=== PATIENT | male | born 2005 | race Caucasian/White ===

== ENCOUNTER 2024-09-07 10:31 | Emergency (ER) | payer SELFPAY ==
[2024-09-07 10:34] VITALS: BP 119/77; PULSE 74; RESP 18; TEMP 36.9; O2SAT 98
[2024-09-07 10:36] VITALS: BP 119/77; PULSE 74; RESP 18; TEMP 36.9; O2SAT 98
--- NOTE | 2024-09-07 10:43 | W.ED.GENAD ---
Discharge Plan Disposition Patient Disposition: Home Condition: Stable Discharge Details Clinical Impression: Right corneal abrasion Primary Care Provider: Duy Khoury ED Provider: Mikael Reid Home Meds and New Rx's Prescriptions: No Action No Known Home Meds Discharge Instructions Instructions: Erythromycin (Ophthalmic), Corneal Abrasion ED Additional Instructions: You were seen in the emergency department for the minor corneal abrasion of your right eye from a likely foreign body while at work. There is no current foreign body visualized, if you did get metal in the eye there is a chance that the foreign body could form a rust ring which will need to be seen at ground out of your eye with a eriberto drill-if you continue to have eye discomfort and blurry vision please follow-up with [facility] or return to the emergency department for reevaluation. Apply the topical erythromycin ophthalmic eye ointment that we have provided for you 4 times per day for the next 5 days, take Tylenol and ibuprofen for any discomfort today and tomorrow. Referrals: [facility] [Outside] Duy Khoury, [employer] [Primary Care Provider, Medicine] HPI General Date/Time Provider Initiated Documentation: 09/07/24 10:37. HPI Narrative: 19 year-old male presents to ED today by POV/ambulating with a chief complaint of R eye foreign body- was working on a vehicle at work, got some dirt or other substance in eye- flushed with a couple gallons of water, now having eye irritation with onset about one hour prior to arrival. Quality described as R eye redness, hurts to open, no radiation to discharge, loss of vision, globe rupture, fever. Severity is described as moderate. Palliating factors include water flush with no relief. Provoking factors include nothing specific. Events leading up to the incident/Associated Symptoms: Patient does not believe he got metal in his eye. Patient not anticoagulated. Related Data Home Medications ?Medication ?Instructions ?Recorded ?Confirmed Unknown [No Known Home Meds] 11/07/20 09/07/24 Allergies Allergy/AdvReac Type Severity Reaction Status Date / Time No Known Allergies Allergy Unverified 09/07/24 10:36 General Stated Complaint: EyeProblem MAY: 4 Review of Systems All systems reviewed & are unremarkable except as noted in HPI and below Exam Narrative Exam Narrative: GENERAL APPEARANCE: Well-nourished, non-toxic, awake and alert, atraumatic, no acute distress. SKIN: Warm, pink, dry, intact, without rashes/lesions/ulcerations. HEAD: Normocephalic, atraumatic, normal hair distribution for gender/age. EYES: Normal conjunctiva, no exudates on lids/lashes, vision grossly intact, EOMs intact, pupils PERRLA, fluorescein eye exam shows likely minor nail abrasion at the 9 o'clock position of OD, no foreign body or rust ring seen ENT: Nares patent, no circumoral cyanosis, no facial swelling NECK: Supple, trachea midline, painless cervical ROM. LUNGS/CHEST: Non-labored respirations, normal A/P diameter, symmetrical expansion, no chest wall deformity HEART (CV/PV): No peripheral edema, no JVD. ABDOMEN: Soft, non-distended, no guarding. MSK: Normal ROM, no swelling/deformity to bilateral UEs or LEs, moving all extremities without weakness, no cyanosis, spine midline without tenderness, normal curvature. NEURO: Mental Status AAOx4 - alert to person, place, time, events No facial droop, no forehead involvement. Motor: No focal weakness - strength 5/5 in bilateral UEs and LEs, proximal and distal, symmetric. Sensory: sensation intact to light touch globally. Gait NT. PSYCH: euthymic, cooperative, pleasant, appropriate speech Course Vital Signs Vital signs: Vital Signs Temperature 36.9 C 09/07/24 10:34 Pulse 74 09/07/24 10:34 Respiratory Rate 18 09/07/24 10:34 Blood Pressure 119/77 09/07/24 10:34 Pulse Oximetry 98 09/07/24 10:34 Temperature 36.9 C 09/07/24 10:36 Pulse 74 09/07/24 10:36 Respiratory Rate 18 09/07/24 10:36 Blood Pressure 119/77 09/07/24 10:36 Pulse Oximetry 98 09/07/24 10:36 Pain Level 2 09/07/24 10:36 Medical Decision Making This dictation utilizes [id number] dictation software and may contain unedited grammatical errors. 19 year-old male presents to ED today by POV/ambulating with a chief complaint of R eye foreign body- was working on a vehicle at work, got some dirt or other substance in eye- flushed with a couple gallons of water, now having eye irritation with onset about one hour prior to arrival. Quality described as R eye redness, hurts to open, no radiation to discharge, loss of vision, globe rupture, fever. Severity is described as moderate. Palliating factors include water flush with no relief. Provoking factors include nothing specific. Events leading up to the incident/Associated Symptoms: Patient does not believe he got metal in his eye. Patients' medical history: Negative, otherwise healthy. Family and social history: nothing specific. Pertinent exam findings / vital signs include vision grossly intact, EOMs intact, pupils PERRLA, fluorescein eye exam shows likely minor nail abrasion at the 9 o'clock position of OD, no foreign body or rust ring seen. Differential / pathologies of concern include corneal abrasion, corneal foreign body. Diagnostic studies of: -None. Interventions of: -Given prophylactic erythromycin ointment, offered Tdap patient stated he would get it at his regular physical next year. ED Course/Assessment/Plan: 19-year-old male got some dirt in his eye while at work, having irritation, fluorescein eye exam reveals no current foreign body and I did not see any rust ring, patient denies any metal getting in his eye. He has a tiny pinpoint corneal abrasion at 9:00 of the OD, I did provide a 250mL eye flush with salma lense, and erythromycin ophtho ointment to prevent infection. Offered the patient Tdap but he declines, states he will get it at his next checkup, counseled him on strict return criteria for any loss of vision, he may need follow-up persistent discomfort for reevaluation for any tiny pinpoint rust-ring, was working on a vehicle despite insisting no metal got in his eye. Findings not consistent with globe rupture, corneal ulceration, retained corneal foreign body. Disposition of Corneal Abrasion of Right Eye. Patient verbalized understanding of the plan and return to ED criteria and engaged in shared decision making. Medical Records Medical records reviewed: Yes I reviewed the patient's medical records. [facility] All Active Problems (Updated 09/07/24 @ 11:31 by ONIEL Torre) Right corneal abrasion (Acute) Surgical History History of circumcision Family History Father Diabetes Grandparent, unspecified Heart disease Bipass Neoplasm Brain cancer Social History (Updated 07/02/24 @ 11:07 by Evelyne Ma) Smoking/Tobacco Use Status: Never Second Hand Exposure: No Smoking risk assessment performed?: Yes Alcohol Intake: never Drug use: Never Substance use type: does not use Adopted: No Caregiver/Support person: No Foster care: No Household members: family Housing: house Number of Children: 0 number of grandchildren: 0 Communication Needs: None Education Level: college Details: Associate Degree Do you need help understanding health information?: Never 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 Pets and animals: Yes (2 cats) Pets and animals: cat(s) Sexually active: No Do you think of yourself as: straight/heterosexual Current gender identity: male What is your relationship status?: never How often do you talk on the phone with friends or family?: once per week How often do you get together with friends or relatives?: once per week How often do you attend lutheran or worship services?: 1-3 times per year Do you belong to any clubs or organized social groups?: no Panel score (0-1 are the most socially isolated patients): 0 What type of physical activity do you participate in: none Frequency: does not exercise Special april needs: No Agree to transfusion: Yes Seatbelt use: never Helmet use: Yes Helmet use: sometimes Drive intox or ride w/intox special events driver: No Working smoke detector in home: Yes Carbon monox detector in home: Yes Firearms in home: Yes Firearms unloaded and locked: Yes Do you feel safe at home: Yes Do you feel safe in your relationship?: Yes Victim of physical abuse: No Victim of emotional abuse: No Victim of sexual abuse: No Would you like helpful sources: No
[2024-09-07] MEDS: Fluorescein STRIPS 100/BOX 1 MG OP (10:53)
[2024-09-07] MEDS: Tetracaine 0.5% 4 ML BTL OP (10:53)
[2024-09-07] MEDS: Erythromycin Ophth Oint 3.5 GM TUBE OP (10:53)
[2024-09-07 11:41] VITALS: BP 108/61; PULSE 59; RESP 17; TEMP 36.4; O2SAT 97
[2024-09-07 11:48] VITALS: BP 108/61; PULSE 59; RESP 17; TEMP 36.4; O2SAT 97
== END 2024-09-07 11:48 | disposition home or self-care (01) ==
PROVIDERS: Emergency Provider Physician Assistant; PCP Nurse Practitioner Family
DX: S05.01XA Injury of conjunctiva and corneal abrasion without foreign body, right eye, initial encounter (principal); X58.XXXA Exposure to other specified factors, initial encounter; Y99.0 Civilian activity done for income or pay
CPT/HCPCS: 99283 ×2; 99284